=== PATIENT | male | born 2000 | race African-American/Black ===

== ENCOUNTER 2023-07-01 09:33 | Emergency (ER) | payer OTHER ==
[~2023-07-01] VITALS: Ht 180.3 cm; Wt 74.8 kg
[2023-07-01 13:48] VITALS: BP 128/77; TEMP 98.1; O2SAT 100
== END 2023-07-01 14:02 | disposition home or self-care (01) ==
LOC: M ED 09:33
DX: S52.354A Nondisplaced comminuted fracture of shaft of radius, right arm, initial encounter for closed fracture (principal); W19.XXXA Unspecified fall, initial encounter; Y93.B9 Activity, other involving muscle strengthening exercises; Y92.9 Unspecified place or not applicable; Y99.8 Other external cause status

== ENCOUNTER 2023-07-09 10:20 | Day surgery (SDC) | payer OTHER ==
[~2023-07-09] VITALS: Ht 180.3 cm; Wt 74.8 kg
[~2023-07-09 10:20] MED LIST: ACET-840 PO; IBUP-1022 PO; IBUP200C25 PO
[2023-07-09] MEDS ORDERED: LR 1,000 ML IV SCH ×2 (10:45→17:30)
[2023-07-09] MEDS ORDERED: fentaNYL 100 MCG/2 ML INJECTION As Ordered ONE (12:14)
[2023-07-09] MEDS ORDERED: propofoL 200 MG/20 ML VIAL As Ordered ONE (12:14)
[2023-07-09] MEDS ORDERED: MIDAZOLAM INJ 2MG/2ML VIAL As Ordered ONE (12:14)
[2023-07-09] MEDS ORDERED: LIDOCAINE 2% 100MG/5ML SDV (FOR ANES.) As Ordered ONE (12:15)
[2023-07-09] MEDS ORDERED: GLYCOPYRROLATE INJ 0.2 MG/ML 2 ML VIAL As Ordered ONE (12:15)
[2023-07-09] MEDS ORDERED: ONDANSETRON 4MG 2ML VIAL As Ordered ONE (12:15)
[2023-07-09] MEDS ORDERED: KETOROLAC 60MG 2ML VIAL As Ordered ONE (12:15)
[2023-07-09] MEDS: ceFAZolin SOD 2 GM in IV 1 EA IV ONE (15:20)
[2023-07-09] MEDS ORDERED: HYDROmorphone HCL 2MG/ML 1ML VIAL As Ordered ONE (15:45)
[2023-07-09] MEDS ORDERED: fentaNYL 100 MCG/2 ML INJECTION IV PRN (17:30)
[2023-07-09] MEDS: ONDANSETRON 4MG 2ML VIAL IV PRN (18:45)
[2023-07-09] MEDS: oxyCODONE 5MG TAB PO PRN (18:45)
[2023-07-09] MEDS: HYDROMORPHONE HCL 0.5 MG/ 0.5 ML SYRINGE IV PRN (18:46)
[2023-07-09 20:31] VITALS: BP 128/65; TEMP 98.4; O2SAT 99
== END 2023-07-09 20:36 | disposition home or self-care (01) ==
LOC: M SDC 10:20
PROVIDERS: ATTEND Student in an Organized Health Care Education/Training Program
DX: S52.501A Unspecified fracture of the lower end of right radius, initial encounter for closed fracture (principal); W18.30XA Fall on same level, unspecified, initial encounter; Y92.89 Other specified places as the place of occurrence of the external cause; Y93.89 Activity, other specified; Y99.9 Unspecified external cause status
CPT/HCPCS: 25607; 76000; C1713; J0665; J0690; J1100; J1170; J2250; J2405; J3010

== ENCOUNTER 2023-08-12 15:08 | Emergency (ER) | payer OTHER ==
[~2023-08-12] VITALS: Ht 180.3 cm; Wt 74.5 kg
[2023-08-12 18:21] VITALS: BP 132/79; TEMP 98.5; O2SAT 99
== END 2023-08-12 18:22 | disposition home or self-care (01) ==
LOC: M ED 15:08
DX: S40.011A Contusion of right shoulder, initial encounter (principal); V49.50XA Passenger injured in collision with unspecified motor vehicles in traffic accident, initial encounter; Y92.410 Unspecified street and highway as the place of occurrence of the external cause; Y93.9 Activity, unspecified; Y99.9 Unspecified external cause status

== ENCOUNTER 2025-03-15 10:09 | Emergency (ER) | payer OTHER ==
[~2025-03-15] VITALS: Ht 180.3 cm; Wt 81.8 kg
[~2025-03-15 10:09] MED LIST changes: -IBUP-1022 PO; +IBUP600T42 PO
[2025-03-15] MEDS ORDERED: ACET-683 PO (10:19)
[2025-03-15 12:42] LABS: BASO # 0.0 10^3/uL (0.0-0.2); BASO % 0.3 % (0.0-1.0); EOS # 0.1 10^3/uL (0.0-0.5); EOS % 1.0 % (0.0-3.0); LYMPH # 2.0 10^3/uL (1.5-5.0); LYMPH % 34.3 % (24.0-44.0); MONO # 0.5 10^3/uL (0.0-0.8); MONO % 8.1 % (2.0-8.0); NEUTROPHILS # 3.2 10^3/uL (1.5-8.5); NEUTROPHILS % 56.1 % (36.0-66.0); PLATELET COUNT, AUTOMATED 158 10^3/uL (150-450)
[2025-03-15 13:09] LABS: CALCIUM LEVEL 9.2 MG/DL (8.5-10.1); CARBON DIOXIDE LEVEL 32 MMOL/L (20-31); CHLORIDE LEVEL 101 MMOL/L (98-107); CREATININE FOR GFR 1.07 MG/DL (0.70-1.30); GLOMERULAR FILTRATION RATE > 90.0 (>60); POTASSIUM SERUM 4.3 MMOL/L (3.5-5.1); SODIUM LEVEL 140 MMOL/L (136-145)
[2025-03-15 13:38] LABS: APPEARANCE, URINE CLEAR (CLEAR); BACTERIA, URINE AUTO NEGATIVE (NEGATIVE); BILIRUBIN, URINE AUTO NEGATIVE (NEGATIVE); BLOOD, URINE BLOOD NEGATIVE (NEGATIVE); GLUCOSE, URINE (UA) AUTO NEGATIVE (NEGATIVE); KETONE, URINE AUTO NEGATIVE (NEGATIVE); LEUKOCYTE ESTERASE, URINE AUTO NEGATIVE (NEGATIVE); NITRITE, URINE AUTO NEGATIVE (NEGATIVE); PROTEIN, URINE AUTO NEGATIVE (NEGATIVE); RBC, URINE AUTO 1 /HPF (0-3); SPECIFIC GRAVITY URINE AUTO 1.017 (1.002-1.035); SQUAMOUS EPITHELIAL CELL UR AU 0 /HPF (0-6); UROBILINOGEN, URINE AUTO 0.2 mg/dL (0.0-2.0); WBC, URINE AUTO 2 /HPF (0-3)
[2025-03-15] MEDS ORDERED: MIRA3350 PO (14:02)
[2025-03-15] MEDS ORDERED: ANUS25SU PR (14:02)
[2025-03-15 14:06] VITALS: BP 121/65; TEMP 97.8; O2SAT 100
== END 2025-03-15 14:07 | disposition home or self-care (01) ==
LOC: M ED 10:09
DX: K62.5 Hemorrhage of anus and rectum (principal); Z79.1 Long term (current) use of non-steroidal anti-inflammatories (NSAID); Z79.899 Other long term (current) drug therapy